=== PATIENT | female | born 1990 | race Caucasian/White ===

== ENCOUNTER 2023-05-27 05:43 | Emergency (ER) | payer BC, MEDICAID, SELFPAY ==
[2023-05-27 05:49] VITALS: BMI 20.7
[2023-05-27 05:52] VITALS: BP 164/115; PULSE 85; RESP 16; TEMP 36.6; O2SAT 100
--- NOTE | 2023-05-27 05:57 | USR_ITS ---
PROCEDURE INFORMATION: Exam: US Abdomen, Limited; Right Upper Quadrant Exam date and time: 05/27/2023 6:19 AM Age: 32 years old Clinical indication: Abdominal pain; Additional info: Ruq pain TECHNIQUE: Imaging protocol: Real time ultrasound of the abdomen with image documentation. Limited exam focused on the right upper quadrant. COMPARISON: No relevant prior studies available. FINDINGS: Liver: The liver is enlarged but normal in contour and echotexture. Gallbladder: Normal. No gallstones. There is no gallbladder wall thickening. Biliary ducts: The common duct measures 3.9 mm. Pancreas: Visualized pancreas is unremarkable. Right kidney: The right kidney measures 11.5 cm in length and is normal in contour and echotexture without hydronephrosis. US/US gall bladder [id number] IMPRESSION: Hepatomegaly.
--- NOTE | 2023-05-27 06:06 | CTR_ITS ---
PROCEDURE INFORMATION: Exam: CT Abdomen And Pelvis With Contrast Exam date and time: 05/27/2023 7:11 AM Age: 32 years old Clinical indication: Abdominal pain; Additional info: Abd pain TECHNIQUE: Imaging protocol: Computed tomography of the abdomen and pelvis with contrast. Radiation optimization: All CT scans at this facility use at least one of these dose optimization techniques: automated exposure control; mA and/or kV adjustment per patient size (includes targeted exams where dose is matched to clinical indication); or iterative reconstruction. Contrast material: OMNI 350; Contrast volume: 100 ml; Contrast route: INTRAVENOUS (IV); REPORTING DATA: Count of CT and Cardiac NM exams in prior 12 months: This patient has received 0 known CTs and 0 known cardiac nuclear medicine studies in the 12 months prior to the current study. COMPARISON: US gall bladder [id number] 05/27/2023 6:19 AM RADIATION DOSE METRICS: Total DLP (mGy-cm): 379.52 FINDINGS: Lungs: [place] dependent changes noted in the lower lobes. Liver: There is disproportionate enlargement of the right hepatic lobe which could be a normal anatomic variant. Gallbladder and bile ducts: The gallbladder is partially distended. Pancreas: Normal. No ductal dilation. Spleen: Normal. No splenomegaly. Adrenal glands: Normal. No mass. Kidneys and ureters: The kidneys enhance symmetrically and there is no hydronephrosis. Stomach and bowel: A large amount of stool is noted in the proximal 3/4 of the colon. Appendix: No evidence of appendicitis. Intraperitoneal space: Unremarkable. No free air. No significant fluid collection. Vasculature: Abdominal aorta is normal in course and caliber. Incidental note is made of a circumaortic left renal vein. Lymph nodes: Unremarkable. No enlarged lymph nodes. Urinary bladder: Unremarkable as visualized. Reproductive: Unremarkable as visualized. Bones/joints: Unremarkable. No acute fracture. Soft tissues: There is a broad-based nonobstructing umbilical hernia containing a portion of transverse colon. CT/CT abdomen pelvis w con* [id number] IMPRESSION: Constipation. Broad-based umbilical hernia. Segun's right hepatic lobe.
--- NOTE | 2023-05-27 06:08 | ED_ITS ---
HPI - Abdominal Pain 2 General: Chief Complaint: Abdominal Pain Stated Complaint: right abdomen pain Time Seen by Provider: 05/27/23 05:52 Source: patient Mode of arrival: ambulatory Limitations: no limitations History of Present Illness: 32-year-old female states that she start ed having right upper quadrant abdominal pain at 4 AM. States pain has been sharp she had nausea she denies any fevers. She rates her pain a 7 out of 10 denies any worsening improving factors. She had no vomiting or diarrhea. Associated Symptoms: Denies chills, diarrhea, fever(s), nausea and vomiting Review of Systems 2 Const: Denies: fever(s), chills, body aches or change in appetite Eyes: Denies: blurry vision or eye discomfort ENMT: Denies: throat pain or dental pain Card: Denies: chest pain Resp: Denies: dyspnea GI: Reports: abdominal pain; Denies: nausea, vomiting or diarrhea Musc: Denies: neck pain or back pain Skin/Breast: Denies: rash Neuro: Denies: headache(s) Psych: Denies: depression Physical Exam 2 Const: COMMON NORMALS: no acute distress, patient oriented x3 and healthy appearing HENMT: COMMON NORMALS: normocephalic and atraumatic HEAD & SCALP: n ormocephalic and atraumatic Eye: COMMON NORMALS: Equal, round and reactive pupils present and EOMs intact bilaterally PUPIL: Yes Equal, round and reactive pupils present Neck/C-Spine: COMMON NORMALS: full ROM and supple Chest: COMMONS NORMALS: normal inspection of the chest Resp: COMMON NORMALS: normal respiratory effort, No retractions, No use of accessory muscles and clear to auscultation bilaterally AUSCULTATION: clear to auscultation bilaterally Cardio: COMMON NORMALS: regular rate, regular rhythm and No murmurs present (Cardio) RATE: regular rate RHYTHM: regular rhythm GI: COMMON NORMALS: Normal to inspection, nondistended, normoactive bowel sounds present, Soft to palpation and no masses PALPATION: Yes Soft to palpation and Yes Tenderness to palpation present (GI) Details: RUQ Extremity: COMMON NORMALS: normal to inspection and full ROM Neuro: COMMON NORMALS: patient oriented x3, moves all extremities and no focal motor deficits Psych: COMMON NORMALS: mental status grossly normal, Normal thought process present and cooperative THOUGHT PROCESS: Normal thought process present Skin: COMMON NORMALS: no rashes or lesions noted and no wounds GENERAL SKIN EXAM: no rashes or lesions noted Course 2 Vital Signs: Vital signs: Vital Signs Temperature 97.9 F 05/27/23 05:52 Pulse Rate 75 05/27/23 06:43 Respiratory Rate 15 05/27/23 06:43 Blood Pressure 154/94 05/27/23 06:43 Pulse Oximetry 100 05/27/23 06:43 Oxygen Delivery Me thod Room Air 05/27/23 06:43 MDM - Abdominal Pain Medical Decision Making Patient presents with abdominal pain blood work CT ultrasound are all normal she does have a ventral hernia and some constipation she is to take MiraLAX at home we will get her follow-up with surgery she has no signs of any strangulated bowel her abdominal exam at discharge is benign return if worsening. Medical Records I reviewed the patient's medical records. Lab Data I reviewed the patient's lab results. 05/27/23 06:00 05/27/23 06:00 Labs/Radiology: Radiology Impressions Gallbladder Ultrasound 05/27/23 05:57 IMPRESSION: Hepatomegaly. Abdomen/Pelvis CT 05/27/23 06:06 IMPRESSION: Constipation. Broad-based umbilical hernia. Segun's right hepatic lobe. Laboratory Results WBC 5.27 10^3/uL (3.29-11.43) 05/27/23 06:00 RBC 4.39 10^6/uL (3.85-5.65) 05/27/23 06:00 Hgb 14.10 g/dL (11.27-16.99) 05/27/23 06:00 Hct 40.2 % (36-47) 05/27/23 06:00 MCV 91.6 fl (85-98) 05/27/23 06:00 MCH 32.1 pg (27-33) 05/27/23 06:00 MCHC 35.1 g/dL (30-55) 05/27/23 06:00 RDW 11.6 % (12.1-15.1) L 05/27/23 06:00 Plt Count 304 10^3/cmm (157-399) 05/27/23 06:00 MPV 8.8 fL (7.4-10.4) 05/27/23 06:00 Neut % (Auto) 59.4 % 05/27/23 06:00 Lymph % (Auto) 31.7 % 05/27/23 06:00 [place] % (Auto) 6.6 % 05/27/23 06:00 Eos % (Auto) 1.3 % 05/27/23 06:00 Baso % (Auto) 0.8 % 05/27/23 06:00 Neut # (Auto) 3.13 10^3/uL (1.8-7.7) 05/27/23 06:00 Lymph # (Auto) 1.7 10^3/uL (0.8-4.8) 05/27/23 06:00 [place] # (Auto) 0.4 10^3/uL (0.2-0.9) 05/27/23 06:00 Eos # (Auto) 0.1 10^3/uL (0.0-0.8) 05/27/23 06:00 Baso # (Auto) 0.0 10^3/uL (0.0-0.1) 05/27/23 06:00 Nucleated RBC % (auto) 0 % 05/27/23 06:00 Nucleated RBCs # 0.0 /100WBC 05/27/23 06:00 Sodium 137 mmol/L (136-145) 05/27/23 06:00 Potassium 3.5 mmol/L (3.5-5.1) 05/27/23 06:00 Chloride 100 mmol/L (98-107) 05/27/23 06:00 Carbon Dioxide 23 mmol/L (22-29) 05/27/23 06:00 Anion Gap 17.5 (5-19) 05/27/23 06:00 BUN 10 mg/dL (6-20) 05/27/23 06:00 Creatinine 0.7 mg/dL (0.5-0.9) 05/27/23 06:00 GFR Calculation 97.0 mL/min (90-130) 05/27/23 06:00 Glucose 122 mg/dL (65-115) H 05/27/23 06:00 Calculated Osmolality 284 mOsm/kg (285-295) L 05/27/23 06:00 Calcium 9.8 mg/dL (8.5-10.5) 05/27/23 06:00 Total Bilirubin 0.8 mg/dL (0.15-1.2) 05/27/23 06:00 AST 11 U/L (0-32) 05/27/23 06:00 ALT 15 U/L (0-33) 05/27/23 06:00 Alkaline Phosphatase 53 U/L (35-105) 05/27/23 06:00 C-Reactive Protein 3.0 mg/L (0.0-4.9) 05/27/23 06:00 Total Protein 7.8 g/dL (6.6-8.7) 05/27/23 06:00 Albumin 4.8 g/dL (3.5-5.2) 05/27/23 06:00 Globulin 3.0 g/dL (1.3-4.6) 05/27/23 06:00 Lipase 31 U/L (13-60) 05/27/23 06:00 HCG, Qual Negative (Negative) 05/27/23 06:00 Urine Color Straw (Yellow) 05/27/23 06:08 Urine Appearance Clear (CLEAR) 05/27/23 06:08 Urine pH 6.5 (5-7) 05/27/23 06:08 Ur Specific [place] 1.005 (1.005-1.030) 05/27/23 06:08 Urine Protein Neg (Negative) 05/27/23 06:08 Urine Glucose (UA) Norm (Normal) 05/27/23 06:08 Urine Ketones Negative (Negative) 05/27/23 06:08 Urine Blood Neg (Negative) 05/27/23 06:08 Urine Nitrate Negative (Negative) 05/27/23 06:08 Urine Bilirubin Neg (Negative) 05/27/23 06:08 Urine Urobilinogen Norm mg/dL (Negative) 05/27/23 06:08 Ur Leukocyte Esterase Negative (Negative) 05/27/23 06:08 All radiology interpretation(s) finalized by discharge Discharge Plan Discharge Patient Disposition: Home Clinical Impression: Constipation Abdominal pain Qualifiers: Abdominal location: generalized Qualified Code(s): R10.84 - Generalized abdominal pain Condition: Stable Discharge Orders: Discharge ED (Routine); Ordered 05/27/23 Ordered By: Amor Castañeda Referrals: Alvarado Leavitt DO [Physician] - 1-3 days Discharge Diet: Advance as tolerated Discharge Activity: Resume usual activity Patient Instructions: Constipation (ED), Abdominal Pain (ED) Coding Level of Care Code ED [employer] Agent for [place]
[2023-05-27 06:14] LABS: Basophils % 0.8 %; Eosinophils # 0.1 10^3/uL (0.0-0.8); Eosinophils % 1.3 %; Hematocrit 40.2 % (36-47); Lymphocytes # 1.7 10^3/uL (0.8-4.8); Lymphocytes % 31.7 %; Mean Corpuscular HGB Conc 35.1 g/dL (30-55); Mean Corpuscular Hemoglobin 32.1 pg (27-33); Mean Corpuscular Volume 91.6 fl (85-98); Mean Platelet Volume 8.8 fL (7.4-10.4); Monocytes # 0.4 10^3/uL (0.2-0.9); Monocytes % 6.6 %; Neutrophils # 3.13 10^3/uL (1.8-7.7); Neutrophils % 59.4 %; Nucleated Red Blood Cells % 0 %; Platelet Count 304 10^3/cmm (157-399); Red Blood Count 4.39 10^6/uL (3.85-5.65); Red Cell Distribution Width 11.6 % (12.1-15.1); White Blood Count 5.27 10^3/uL (3.29-11.43)
[2023-05-27 06:20] LABS: Add Urine Microscopic? NO; Charge for UA Resulting for Rev
[2023-05-27 06:28] LABS: Alanine Aminotransferase 15 U/L (0-33); Albumin Level 4.8 g/dL (3.5-5.2); Alkaline Phosphatase 53 U/L (35-105); Anion Gap 17.5 (5-19); Aspartate Amino Transferase 11 U/L (0-32); Blood Urea Nitrogen 10 mg/dL (6-20); Calcium 9.8 mg/dL (8.5-10.5); Carbon Dioxide 23 mmol/L (22-29); Chloride 100 mmol/L (98-107); Glucose 122 mg/dL (65-115); Lipase 31 U/L (13-60); Osmolality Calculated 284 mOsm/kg (285-295); Potassium 3.5 mmol/L (3.5-5.1); Sodium 137 mmol/L (136-145); Total Bilirubin 0.8 mg/dL (0.15-1.2); Total Protein 7.8 g/dL (6.6-8.7)
[2023-05-27 06:43] VITALS: BP 154/94; PULSE 75; RESP 15; O2SAT 100
[2023-05-27 06:51] LABS: Bilirubin Urine Neg (Negative); Blood Urine Neg (Negative); Glucose Urine UA Norm (Normal); Ketones Urine Negative (Negative); Leukocyte Esterase Urine Negative (Negative); Nitrate Urine Negative (Negative); Protein Urine Neg (Negative); Specific Gravity, Urine 1.005 (1.005-1.030); Urine Appearance Clear (CLEAR); Urine Color Straw (Yellow); Urobilinogen Urine Norm (Negative); pH Urine 6.5 (5-7)
[2023-05-27 06:52] LABS: HCG, Serum Qual Negative (Negative)
[2023-05-27] MEDS: iohexol 350 mg/mL 500 mL Btl (per mL) IV (07:16)
--- NOTE | 2023-05-28 09:45 | DCPLANNER ---
Referral was sent to Dr. Guillen office on 05/27/23 at 09. [facility] to contact patient.
== END 2023-05-27 08:00 | disposition home or self-care (01) ==
PROVIDERS: Emergency Medicine; Emergency Provider Emergency Medicine
DX: K59.00 Constipation, unspecified (principal); R10.84 Generalized abdominal pain; K42.9 Umbilical hernia without obstruction or gangrene; R16.0 Hepatomegaly, not elsewhere classified
CPT/HCPCS: 74177; 76705; 80053; 81003; 83690; 84703; 85025; 86140; 99285; Q9967